=== PATIENT | female | born 1940 | race Caucasian/White ===

== ENCOUNTER 2017-08-10 15:22 | Emergency (ER) | payer OTHER ==
[~2017-08-10] VITALS: Ht 157.4 cm; Wt 108.9 kg
== END 2017-08-10 17:37 | disposition home or self-care (01) ==
LOC: ED 15:22
DX: S00.93XA Contusion of unspecified part of head, initial encounter (principal); M25.512 Pain in left shoulder; M79.622 Pain in left upper arm; W01.0XXA Fall on same level from slipping, tripping and stumbling without subsequent striking against object, initial encounter; Y93.89 Activity, other specified; Y92.89 Other specified places as the place of occurrence of the external cause; Y99.8 Other external cause status